=== PATIENT | male | born 1995 | race Two or more races ===

== ENCOUNTER 2022-02-01 19:01 | Emergency (ER) | payer BC ==
[~2022-02-01] VITALS: Ht 162.6 cm; Wt 70.2 kg
[2022-02-02] MEDS ORDERED: albuterol 2.5 MG/3 ML nebule CONTNEB PRN (01:00)
[2022-02-02] MEDS ORDERED: levoFLOXACIN 250mg tablet PO ONE (01:45)
[2022-02-02] MEDS ORDERED: ALBU18HF2 INH (01:46)
[2022-02-02] MEDS ORDERED: LEVO-65 PO (01:46)
[2022-02-02 02:29] VITALS: BP 133/85
== END 2022-02-02 02:31 | disposition home or self-care (01) ==
LOC: ER 19:02 → EDBD 19:02 → ER 02-02 02:31
DX: J20.9 Acute bronchitis, unspecified (principal); F17.210 Nicotine dependence, cigarettes, uncomplicated
CPT/HCPCS: 71045; 87502; 87503; 94640; 94760; 99285